=== PATIENT | male | born 1935 | race Caucasian/White ===

== ENCOUNTER 2020-07-07 17:35 | Emergency (ER) | payer MEDICARE ==
[2020-07-07 17:45] VITALS: RESP 16; TEMP 97
[2020-07-07] MEDS ORDERED: SODIUM CHLORIDE 0.9% 1,000 ML IV STA (17:57)
[2020-07-07] MEDS ORDERED: ONDANSETRON 4 MG/2 ML VIAL IVP STA (17:57)
[2020-07-07] MEDS ORDERED: FAMOTIDINE 20 MG/2 ML VIAL IV STA (17:58)
--- NOTE | 2020-07-07 18:04 | ED ---
General Adult HPI - General Chief complaint: Nausea/Vomiting/Diarrhea Stated complaint: weakness, nausea, vomiting Time Seen by Provider: 07/07/20 17:39 Source: patient, EMS, RN notes reviewed Mode of arrival: EMS Limitations: no limitations - History of Present Illness Initial comments: Patient is a pleasant 84-year-old male presenting to the emergency Department with complaints of nausea vomiting. Patient was playing golf when he started not feeling well. Patient felt fatigued. Patient came nauseated. Patient then had a beverage with some or genetic and symptoms got worse. Patient vomited a couple of times. Nausea has improved with Zofran by EMS. No abdominal pain. He should states he feels cold and shaky. Temperature rechecked by myself at 98.7. - Related Data Home Medications Medication Instructions Recorded Confirmed ALPRAZolam [Xanax] 0.5 mg PO HS PRN 06/09/16 06/12/16 Aspirin [Adult Low Dose Aspirin EC] 81 mg PO DAILY 06/09/16 06/12/16 Levothyroxine Sodium [Synthroid] 100 mcg PO DAILY 06/09/16 06/12/16 [place]-3 Fatty Acids/Fish Oil [Fish 2,000 unit PO DAILY 06/09/16 06/12/16 Oil 1,000 mg Softgel] Simvastatin [Zocor] 20 mg PO DAILY 06/09/16 06/12/16 Vit A/Vit C/Vit E/Zinc/Copper 2 tab PO DAILY 06/09/16 06/12/16 [ICAPS SOFTGEL] lisinopriL [Zestril] 10 mg PO DAILY 06/09/16 06/12/16 Allergies Allergy/AdvReac Type Severity Reaction Status Date / Time No Known Allergies Allergy Verified 06/09/16 15:26 Review of Systems ROS Statement: Those systems with pertinent positive or pertinent negative responses have been documented in the HPI. ROS Other: All systems not noted in ROS Statement are negative. Constitutional: Reports: chills. Denies: fever Eyes: Denies: eye pain ENT: Denies: ear pain Respiratory: Denies: cough, dyspnea Cardiovascular: Denies: chest pain Endocrine: Reports: fatigue Gastrointestinal: Reports: nausea, vomiting. Denies: abdominal pain, diarrhea, constipation Genitourinary: Denies: dysuria Musculoskeletal: Denies: back pain Skin: Denies: rash Neurological: Denies: weakness Past Medical History Past Medical History: Eye Disorder Additional Past Medical History / Comment(s): HX POLYPS, HX MITRAL VALVE PROLAPS History of Any Multi-Drug Resistant Organisms: None Reported Past Surgical History: Cholecystectomy Additional Past Surgical History / Comment(s): HX OF CAROTIDENDARTECTOMY Past Anesthesia/Blood Transfusion Reactions: No Reported Reaction Past Psychological History: No Psychological Hx Reported Past Alcohol Use History: Occasional Past Drug Use History: None Reported - Past Family History Father Family Medical History: CVA/TIA General Exam Limitations: no limitations General appearance: alert, in no apparent distress Head exam: Present: normocephalic Eye exam: Present: normal appearance Neck exam: Present: normal inspection Respiratory exam: Present: normal lung sounds bilaterally Cardiovascular Exam: Present: regular rate, normal rhythm GI/Abdominal exam: Present: soft, normal bowel sounds. Absent: distended, tenderness, guarding, rebound, rigid, pulsatile mass Extremities exam: Present: normal inspection Neurological exam: Present: alert Psychiatric exam: Present: normal affect, normal mood Skin exam: Present: normal color Course Vital Signs 07/07/20 17:38 Temperature 97.0 F L Pulse Rate 73 Respiratory 16 Rate Blood Pressure 132/93 O2 Sat by Pulse 98 Oximetry EKG Findings - EKG Comments: EKG Findings:: Sinus rhythm at 85. For screening AV block RI of 202. QRS 90. QT 386. QTc 459. Normal axis. Normal QRS. No acute ST change. Medical Decision Making - Medical Decision Making Patient reevaluated and resting comfortably in bed. Abdomen remains soft and nontender. Patient is feeling better and is comfortable with discharge home. Patient and family updated on results and need for follow-up. - Lab Data Result diagrams: 07/07/20 18:24 07/07/20 18:24 Lab Results 07/07/20 07/07/20 07/07/20 Range/Units 18:24 18:24 18:24 WBC 14.2 H (3.8-10.6) k/uL RBC 5.24 (4.30-5.90) m/uL Hgb 15.1 (13.0-17.5) gm/dL Hct 47.4 (39.0-53.0) % MCV 90.5 (80.0-100.0) fL MCH 28.8 (25.0-35.0) pg MCHC 31.9 (31.0-37.0) g/dL RDW 14.6 (11.5-15.5) % Plt Count 168 (150-450) k/uL Neutrophils % 85 % Lymphocytes % 8 % Monocytes % 6 % Eosinophils % 1 % Basophils % 0 % Neutrophils # 12.0 H (1.3-7.7) k/uL Lymphocytes # 1.1 (1.0-4.8) k/uL Monocytes # 0.8 (0-1.0) k/uL Eosinophils # 0.1 (0-0.7) k/uL Basophils # 0.0 (0-0.2) k/uL Sodium 139 (137-145) mmol/L Potassium 3.7 (3.5-5.1) mmol/L Chloride 106 (98-107) mmol/L Carbon Dioxide 22 (22-30) mmol/L Anion Gap 11 mmol/L BUN 29 H (9-20) mg/dL Creatinine 1.50 H (0.66-1.25) mg/dL Est GFR (CKD-EPI)AfAm 49 (>60 ml/min/1.73 sqM) Est GFR (CKD-EPI)NonAf 42 (>60 ml/min/1.73 sqM) Glucose 152 H (74-99) mg/dL Calcium 9.2 (8.4-10.2) mg/dL Total Bilirubin 1.1 (0.2-1.3) mg/dL AST 74 H (17-59) U/L ALT 26 (4-49) U/L Alkaline Phosphatase 89 (38-126) U/L Troponin I <0.012 (0.000-0.034) ng/mL Total Protein 7.3 (6.3-8.2) g/dL Albumin 4.3 (3.5-5.0) g/dL Amylase 311 H* (30-110) U/L Lipase 163 (23-300) U/L Disposition Clinical Impression: Vomiting Disposition: HOME SELF-CARE Condition: Stable Instructions (If sedation given, give patient instructions): Acute Nausea and Vomiting (ED) Additional Instructions: Please follow-up with primary care physician in the next couple days for recheck. Return for fever, pain, uncontrolled vomiting, worsening or changing symptoms or other concerns. Is patient prescribed a controlled substance at d/c from ED?: No Referrals: Na,Rocco, MD [Primary Care Provider] - 1-2 days Time of Disposition: 19:35
[2020-07-07 18:31] LABS: Basophils % (A) 0 %; Eosinophils # (A) 0.1 k/uL (0-0.7); Eosinophils % (A) 1 %; HCT 47.4 % (39.0-53.0); HGB 15.1 gm/dL (13.0-17.5); Lymphocytes # (A) 1.1 k/uL (1.0-4.8); Lymphocytes % (A) 8 %; MCH 28.8 pg (25.0-35.0); MCHC 31.9 g/dL (31.0-37.0); MCV 90.5 fL (80.0-100.0); Monocytes # (A) 0.8 k/uL (0-1.0); Monocytes % (A) 6 %; Neutrophils % (A) 85 %; Platelet Count 168 k/uL (150-450); RBC 5.24 m/uL (4.30-5.90); RDW 14.6 % (11.5-15.5); WBC 14.2 k/uL (3.8-10.6)
[2020-07-07 18:42] LABS: Albumin 4.3 g/dL (3.5-5.0); Calcium 9.2 mg/dL (8.4-10.2); Potassium 3.7 mmol/L (3.5-5.1); Total Bilirubin 1.1 mg/dL (0.2-1.3); Total Protein 7.3 g/dL (6.3-8.2)
[2020-07-07] MEDS ORDERED: ONDANSETRON 4 MG ODT STARTER PACK 2 TAB BTL PO STA (19:34)
[2020-07-07 19:54] VITALS: BP 128/80; PULSE 82
== END 2020-07-07 20:00 | disposition home or self-care (01) ==
LOC: EC 17:35
DX: R11.10 Vomiting, unspecified (principal); R53.1 Weakness; R53.83 Other fatigue; Z79.82 Long term (current) use of aspirin; Z79.890 Hormone replacement therapy; Z79.899 Other long term (current) drug therapy
CPT/HCPCS: 99284; 96374; 96375; 96361; 36415; 93005; 80053; 82150; 83690; 84484; 85025; J2405; S0119

== ENCOUNTER 2020-12-20 12:13 | Day surgery (SDC) | payer MEDICARE ==
[2020-12-19 11:58] VITALS: BMI 24.4
[~2020-12-20 12:13] MED LIST: LACTATED RINGERS 1,000 ML IV SCH
[2020-12-20 13:35] VITALS: TEMP 97.3
[2020-12-20] MEDS ORDERED: LIDOCAINE 1% (10MG/ML) FOR IV START INTRADERMA ONE (13:55)
[2020-12-20] MEDS ORDERED: LIDOCAINE 1% INJ 10MG/ML (20 ML MDV) ONE (14:38)
[2020-12-20] MEDS ORDERED: PROPOFOL 10 MG/ML 20 ML VIAL IV ONE (14:38)
--- NOTE | 2020-12-20 14:56 | P.PCN ---
Date of Procedure: 12/20/20 Procedure(s) Performed: BRIEF HISTORY: Patient is a 85-year-old pleasant white male scheduled for an elective colonoscopy as a part of evaluation of change in bowel habits for the last 2 months duration. PROCEDURE PERFORMED: Colonoscopy. PREOPERATIVE DIAGNOSIS: Change in bowel habits. IV sedation per Anesthesia. PROCEDURE: After informed consent was obtained, the patient, was brought into the endoscopy unit. IV sedation was administered by Anesthesia under continuous monitoring. Digital rectal examination was normal. Initially the Olympus CF-160 flexible video colonoscope was then inserted in the rectum, gradually advanced into the cecum without any difficulty. Careful examination was performed as the scope was gradually being withdrawn. Ileocecal valve and the appendiceal orifice were visualized and appeared normal. Prep was excellent. Mucosa of the cecum, ascending colon, transverse colon, descending colon, sigmoid colon, and rectum appeared normal. Scattered sigmoid diverticula seen. Retroflexion was performed in the rectum and small internal hemorrhoids were seen. The patient tolerated the procedure well. IMPRESSION: Normal-appearing colon from rectum to cecum no evidence of colitis or colorectal neoplasia Scattered sigmoid diverticulosis Small internal hemorrhoids. RECOMMENDATIONS: Findings of this examination were discussed with the patient as well as his family. He was advised to be a high-fiber diet and take fiber supplements a regular basis. He can use MiraLAX as needed..
[2020-12-20 15:21] VITALS: BP 121/71; PULSE 71; RESP 18
== END 2020-12-20 15:36 | disposition home or self-care (01) ==
LOC: ORWHC2ENDO 12:13
PROVIDERS: ATTEND Internal Medicine Gastroenterology
DX: K57.30 Diverticulosis of large intestine without perforation or abscess without bleeding (principal); K64.8 Other hemorrhoids; I10 Essential (primary) hypertension; E78.5 Hyperlipidemia, unspecified; E07.9 Disorder of thyroid, unspecified; Z79.899 Other long term (current) drug therapy; Z79.890 Hormone replacement therapy; Z79.82 Long term (current) use of aspirin
CPT/HCPCS: 45378; J2001; J2704